=== PATIENT | female | born 1960 | race Caucasian/White ===

== ENCOUNTER 2021-08-17 06:53 | Day surgery (SDC) | payer MEDICARE, MEDICAID ==
[~2021-08-17] VITALS: Ht 160 cm; Wt 70.3 kg
[~2021-08-17 06:53] MED LIST: ALBU8.5H17 INH; BUDE10.2 INH; IPRA3AMP31 INH; MONT-40 PO; TIOT18CA3 INH; albuterol 2.5 MG/3 ML nebule NEB ONE; ceFAZolin inj. 2,000 MG in dextrose 5%-water 100 ML IV ONE; famotidine 20mg tablet PO ONE; ringers solution, lacted 1,000 ML IV SCH
[2021-08-17 07:05] VITALS: BP 126/76
[2021-08-17] MEDS ORDERED: LIDOcaine 0.5% (5mg/ml) 50ml vial ONE (07:29)
[2021-08-17 07:38] LABS: BASOPHILS # (AUTO) 0.1 X10'3 (0-0.2); BASOPHILS % (AUTO) 1.1 % (0-1); EOSINOPHILS # (AUTO) 0.3 X10'3 (0-0.9); EOSINOPHILS % (AUTO) 3.7 % (0-6); LYMPHOCYTES % (AUTO) 27.7 % (21-51); MEAN CORPUSCULAR HEMOGLOBIN 30.4 PG (27.0-31.0); MEAN CORPUSCULAR HGB CONC 34.1 g/dL (33.0-36.5); MEAN CORPUSCULAR VOLUME 89.2 FL (78-98); MEAN PLATELET VOLUME 7.7 FL (7.4-10.4); MONOCYTES # (AUTO) 0.4 X10'3 (0-0.9); NEUTROPHILS # (AUTO) 4.5 X10'3 (1.8-7.7); NEUTROPHILS % (AUTO) 62.5 % (42-75); PRE OP HEMATOCRIT 46.9 % (35.0-45.0); PRE OP PLATELET COUNT 220 X10'3 (140-440); RED BLOOD COUNT 5.26 X10'6 (4.20-5.60); RED CELL DISTRIBUTION WIDTH 14.2 % (11.5-14.5)
[2021-08-17 07:57] LABS: ALBUMIN 3.1 G/DL (3.4-5.0); ALBUMIN/GLOBULIN RATIO 0.9 (1.1-1.5); ALKALINE PHOSPHATASE 208 IU/L (46-116); BLOOD UREA NITROGEN 9 MG/DL (7-18); BUN/CREATININE RATIO 11.1 (6.6-38.0); CALCIUM 8.6 MG/DL (8.5-10.1); CHLORIDE 106 MMOL/L (99-107); CREATININE 0.81 MG/DL (0.40-0.90); PRE OP ALT 12 U/L (30-65); PRE OP ANION GAP 7 (8-16); PRE OP AST 17 U/L (10-37); PRE OP BILIRUB, TOTAL 0.4 MG/DL (0.0-1.0); PRE OP GLUCOSE 88 MG/DL (70-104); PRE OP POTASSIUM 4.1 MMOL/L (3.4-5.1); PRE OP SODIUM 139 MMOL/L (135-145); TOTAL CARBON DIOXIDE 25.6 MMOL/L (24-32); TOTAL PROTEIN 6.6 G/DL (6.4-8.2); eGFR 71 ML/MIN
[2021-08-17] MEDS ORDERED: BUPIVAcaine/PF 2.5 mg/ml (0.25%) 30ml vial ONE ×2 (08:16→08:51)
[2021-08-17] MEDS ORDERED: midazolam 1 mg/ML 2ml injection ONE (08:53)
[2021-08-17] MEDS ORDERED: fentaNYL/PF 50MCG/1 ML 2ML syringe ONE (08:53)
[2021-08-17 09:44] VITALS: BP 102/68
--- NOTE | 2021-08-17 09:44 | NUR ---
Received from OR via [facility], accompanied by Anesthesiologist DR HOLLOWAY and report given by Anesthesiologist AND SCHOOL TREASURER. PT DROWSY, DENIES PAIN. 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 Addendum: 08/17/21 at 1004 by Mahnaz Flores RN Amended: Links added.
[2021-08-17 09:50] VITALS: BP 98/52
[2021-08-17 10:00] VITALS: BP 104/67
[2021-08-17 10:10] VITALS: BP 118/72
--- NOTE | 2021-08-17 10:22 | NUR ---
PT UP AND ABLE TO AMBULATE SAFELY, VOIDED, TOLERATING ORAL INTAKE. D/C INSTRUCTIONS GIVEN AND GONE OVER W/PT WHO VERBALIZED UNDERSTANDING. PT D/CD TO HOME VIA W/C TO PRIVATE VEHICLE W/O INCIDENT. Addendum: 08/17/21 at 1053 by Mahnaz Flores RN Amended: Links added.
== END 2021-08-17 10:24 | disposition home or self-care (01) ==
LOC: PAS 06:53
PROVIDERS: ATTEND Orthopaedic Surgery Hand Surgery
DX: M67.432 Ganglion, left wrist (principal); M81.0 Age-related osteoporosis without current pathological fracture; J44.9 Chronic obstructive pulmonary disease, unspecified; G47.33 Obstructive sleep apnea (adult) (pediatric); E66.9 Obesity, unspecified; Z68.27 Body mass index [BMI] 27.0-27.9, adult; F17.210 Nicotine dependence, cigarettes, uncomplicated; Z79.899 Other long term (current) drug therapy; Z88.1 Allergy status to other antibiotic agents; Z88.2 Allergy status to sulfonamides; Z88.5 Allergy status to narcotic agent; Z72.89 Other problems related to lifestyle
CPT/HCPCS: 25111; 36415; 71045; 80053; 85025; A6222; J0690; J2250; J3010; J3490; J7030; J7060; J7120; Z7506; Z7512; A4215; A4618; A6449; A7000